=== PATIENT | male | born 1995 | race Caucasian/White ===

== ENCOUNTER 2016-12-20 08:35 | Emergency (ER) | payer BC ==
[~2016-12-20] VITALS: Wt 89.0 kg
[2016-12-20] MEDS ORDERED: KETOROLAC 30 MG INJ IV STA (09:00)
[2016-12-20] MEDS ORDERED: SOD CHLORIDE 0.9% 1,000 ML IV STA (09:00)
[2016-12-20] MEDS ORDERED: ONDANSETRON 4 MG INJ IV STA (09:00)
[2016-12-20 09:26] LABS: ADD SCAN DIFF NO
[2016-12-20 09:28] LABS: BASOPHILS % 0.7 % (0.0-2.0); EOSINOPHILS # 0.2 10^3/ul (0.0-0.5); EOSINOPHILS % 3.7 % (0.0-7.0); HEMATOCRIT 46.2 % (42.0-52.0); HEMOGLOBIN 16.1 g/dl (14.0-18.0); LYMPHOCYTES # 2.4 10^3/ul (0.8-2.9); LYMPHOCYTES % 40.3 % (18.0-55.0); MEAN CORPUSCULAR HEMOGLOBIN 33.4 pg (29.0-33.0); MEAN CORPUSCULAR HGB CONC 34.8 g/dl (32.0-37.0); MEAN CORPUSCULAR VOLUME 95.9 fl (72.0-104.0); MEAN PLATELET VOLUME 10.2 fl (7.4-10.4); MONOCYTE # 0.5 10^3/ul (0.3-0.9); MONOCYTES % 8.2 % (0.0-13.0); NEUTROPHIL # 2.8 10^3/ul (1.6-7.5); NEUTROPHILS % 46.9 % (30.0-74.0); PLATELET COUNT 206 10^3/UL (140-415); RED BLOOD COUNT 4.82 10^6/ul (4.70-6.10); WHITE BLOOD COUNT 5.9 10^3/ul (4.8-10.8)
[2016-12-20 09:43] LABS: ADD UMIC YES; URINE BILIRUBIN (Dip) 1+ (NEGATIVE); URINE BLOOD (Dip) 3+ (NEGATIVE); URINE COLOR YELLOW (YELLOW); URINE GLUCOSE (Dip) NEGATIVE (NEGATIVE); URINE KETONES (Dip) NEGATIVE (NEGATIVE); URINE LEUKOCYTE ESTERASE (Dip) NEGATIVE (NEGATIVE); URINE NITRITE (Dip) NEGATIVE (NEGATIVE); URINE TOTAL PROTEIN (Dip) TRACE (NEGATIVE); URINE UROBILINOGEN (Dip) 0.2 E.U./dL (0.1-1.0)
[2016-12-20 09:44] LABS: ALBUMIN 5.1 g/dl (3.3-4.9); ALBUMIN/GLOBULIN RATIO 1.75; BILIRUBIN,INDIRECT 0.4 mg/dl (0-1.1); BILIRUBIN,TOTAL 0.4 mg/dl (0.2-1.3); CALCIUM 9.6 mg/dl (8.4-10.2); CREATININE 0.86 mg/dl (0.61-1.24); POTASSIUM 4.5 mmol/L (3.5-5.1)
[2016-12-20 09:56] LABS: BACTERIA,URINE FEW; ICTOTEST NEGATIVE (NEGATIVE); URINE RBCS >200 /HPF (0)
[2016-12-20] MEDS ORDERED: NAPR-260 PO (10:15)
--- NOTE | 2016-12-20 10:18 | ERD ---
ER Documentation Chief Complaint Date/Time DATE: 12/20/16 TIME: 10:15 Chief Complaint RIGHT FLANK PAIN, BLOOD IN URINE, HX OF KIDNEY STONE HPI Patient is a 21-year-old male with a past medical history of treated hepatitis C who presents to the ED with hematuria 1 day. He states that he has a history of kidney stones and was diagnosed with a kidney stone last week on the left side. He states that he went to an ER where they did a CT scan and he had a 3 mm kidney stone on the left. He states that he now has pain on the right side. Mild nausea with no vomiting. No headache or dizziness. No pain with urination. States that he received Percocet for his pain no other complaints. Patient has a history of heroin abuse. ROS All systems reviewed and are negative except as per history of present illness. Medications Home Meds Active Scripts Naproxen* (Naprosyn*) 500 Mg Tablet, 500 MG PO BID Y for PAIN AND/OR INFLAMMATION, #30 TAB Prov:TELMA MAYA PA-C 12/20/16 Allergies Allergies: Coded Allergies: No Known Allergy (Unverified , 12/20/16) PMhx/Soc History of Surgery: No Anesthesia Reaction: No Hx Neurological Disorder: No Hx Respiratory Disorders: No Hx Cardiac Disorders: No Hx Psychiatric Problems: No Hx Miscellaneous Medical Probl: Yes (kidney stones , hep c ) Hx Alcohol Use: No Hx Substance Use: Yes Hx Tobacco Use: Yes Smoking Status: Current every day smoker FmHx Family History: No coronary disease, No diabetes, No other Physical Exam Vitals Vital Signs Date Time Temp Pulse Resp B/P Pulse Ox O2 Delivery O2 Flow Rate FiO2 12/20/16 08:36 97.6 93 17 119/78 100 Physical Exam GENERAL: Well-developed, well-nourished male. Appears in no acute distress. HEAD: Normocephalic, atraumatic. EYES: Pupils are equally reactive bilaterally. EOMs grossly intact. No conjunctival erythema. ENT: Moist mucous membranes. No uvula deviation. No kissing tonsils. No exudates. NECK: Supple. No lymphadenopathy or thyromegaly. No meningismus. negative kernig. negative brudinski. LUNG: Clear to auscultation bilaterally. No rhonchi, wheezing, rales or coarse breath sounds. HEART: Regular rate and rhythm. No murmurs, rubs or gallops. ABDOMEN: No scars, ecchymosis or rashes noted. Soft, nontender, and nondistended. Positive bowel sounds in all four quadrants. No rebound tenderness , no guarding. (-) McBurneys point tenderness. Tenderness to the left and right CVA. BACK: No midline tenderness. Extremities: Equal pulses bilaterally. No peripheral clubbing, cyanosis or edema. No unilateral leg swelling. NEUROLOGIC: Alert and oriented. Moving all four extremities. 5/5 strength in all extremities. Normal speech. Steady gait. SKIN: Normal color. Warm and dry. No rashes or lesions. Capillary refill < 2 seconds Result Diagram: 12/20/1690612/20/16906 Results 24 hrs Laboratory Tests Test 12/20/16 09:07 White Blood Count 5.910^3/ul Red Blood Count 4.8210^6/ul Hemoglobin 16.1g/dl Hematocrit 46.2% Mean Corpuscular Volume 95.9fl Mean Corpuscular Hemoglobin 33.4pg Mean Corpuscular Hemoglobin Concent 34.8g/dl Red Cell Distribution Width 13.0% Platelet Count 60998^3/UL Mean Platelet Volume 10.2fl Neutrophils % 46.9% Lymphocytes % 40.3% Monocytes % 8.2% Eosinophils % 3.7% Basophils % 0.7% Nucleated Red Blood Cells % 0.0/100WBC Neutrophils # 2.810^3/ul Lymphocytes # 2.410^3/ul Monocytes # 0.510^3/ul Eosinophils # 0.210^3/ul Basophils # 0.010^3/ul Nucleated Red Blood Cells # 0.010^3/ul Urine Color YELLOW Urine Clarity SLIGHTLY CLOUDY Urine pH 6.0 Urine Specific [place] 1.025 Urine Ketones NEGATIVE Urine Nitrite NEGATIVE Urine Bilirubin 1+ Urine Ictotest NEGATIVE Urine Urobilinogen 0.2 E.U./dL Urine Leukocyte Esterase NEGATIVE Urine Microscopic RBC >200/HPF Urine Microscopic WBC 2-5/HPF Urine Epithelial Cells FEW Urine Bacteria FEW Urine Hemoglobin 3+ Urine Glucose NEGATIVE% Urine Total Protein TRACE Sodium Level 146mmol/L Potassium Level 4.5mmol/L Chloride Level 112mmol/L Carbon Dioxide Level 28mmol/L Anion Gap 11 Blood Urea Nitrogen 12mg/dl Creatinine 0.86mg/dl Glucose Level 99mg/dl Calcium Level 9.6mg/dl Total Bilirubin 0.4mg/dl Direct Bilirubin 0.00mg/dl Indirect Bilirubin 0.4mg/dl Aspartate Amino Transf (AST/SGOT) 54IU/L Alanine Aminotransferase (ALT/SGPT) 189IU/L Alkaline Phosphatase 92IU/L Total Protein 8.0g/dl Albumin 5.1g/dl Globulin 2.90g/dl Albumin/Globulin Ratio 1.75 Lipase 39U/L Current Medications Medications (Trade) Dose Ordered Sig/Brian Route PRN Reason Start Time Stop Time Status Last Admin Dose Admin Sodium Chloride (NS) 1,000 ml @ 1,000 mls/hr Q1H STAT IV 12/20/16 09:00 12/20/16 09:59 DC 12/20/16 09:15 Ondansetron HCl (Zofran Inj) 4 mg ONCE STAT IV 12/20/16 09:00 12/20/16 09:03 DC 12/20/16 09:16 Ketorolac Tromethamine (Toradol) 30 mg ONCE STAT IV 12/20/16 09:00 12/20/16 09:03 DC 12/20/16 09:15 Procedures/MDM ER COURSE: I kept the patient and/or family informed of laboratory and diagnostic imaging results throughout the emergency room course. MEDICATIONS: Toradol and Zofran. Tolerated well and stated improvement in symptoms. LAB INTERPRETATION: CBC showed no evidence of systemic infection or severe anemia. CMP showed no evidence of electrolyte abnormalities, severe acidosis, alkalosis, renal failure , or liver disease. Lipase showed no evidence of acute pancreatitis. UA showed no evidence of leukocytes, nitrites. 3+ hemoglobin MEDICAL DECISION MAKING: This is a 21-year-old male with a past medical history of hepatitis C who presents with back pain and hematuria. Vital signs were reviewed. Patient is afebrile. Patient is not hypoxic. Patient is not toxic or ill-appearing. After administration of medication, patient stated that he passed a kidney stone and was feeling much better. Patient stated he was ready to be discharged home with no new complaints. Patient has nephrolithiasis. I have low suspicion for septic or obstructive stone. Patient does not have signs of UTI. Low suspicion for pyelonephritis DISCHARGE: At this time, patient is stable for discharge and outpatient management with no new complaints during the ER course. Patient was sent home with copy of imaging report and Naprosyn. Patient will be discharged home with instructions to recheck for new or worsening symptoms such as fever, nausea, weakness, LOC and to follow up with primary care in the next 1-2 days. Patient was advised to return to the ER for any new or worsening symptoms. Plan was discussed and patient and/or family understands and agrees. Home instructions were given. Departure Diagnosis: Primary Impression: Hematuria Condition: Stable Patient Instructions: Hematuria Additional Instructions: Call your primary care doctor TOMORROW for an appointment during the next 1-2 days.See the doctor sooner or return here if your condition worsens before your appointment time. TELMA MAYA PA-C Dec 20, 2016 10:18
[2016-12-20 10:30] VITALS: TEMP 98.4
== END 2016-12-20 10:30 | disposition home or self-care (01) ==
LOC: FTE 08:35
DX: R31.9 Hematuria, unspecified (principal); F17.210 Nicotine dependence, cigarettes, uncomplicated; R11.0 Nausea
CPT/HCPCS: 36415; 80053; 81001; 83690; 85025; 96374; 96375; 99284; J1885; J2405; J7030

== ENCOUNTER 2017-04-15 19:50 | Emergency (ER) | payer SELFPAY ==
[~2017-04-15] VITALS: Ht 180.3 cm; Wt 75.0 kg
[~2017-04-15 19:50] MED LIST: NAPR-260 PO
[2017-04-15 19:52] VITALS: Ht 180.3 cm; Wt 75.0 kg
== END 2017-04-15 23:13 | disposition left against medical advice (07) ==
LOC: FTE 19:50
DX: Z53.21 Procedure and treatment not carried out due to patient leaving prior to being seen by health care provider (principal)